=== PATIENT | male | born 1960 | race Caucasian/White ===

== ENCOUNTER 2017-06-16 04:58 | Emergency (ER) | payer MEDICAID, OTHER ==
[~2017-06-16] VITALS: Ht 172.7 cm; Wt 63.6 kg
[2017-06-16 05:13] LABS: GLUCOSE,POINT OF CARE 157 MG/DL (70-110)
[2017-06-16] MEDS ORDERED: VITA-328 PO (05:17)
[2017-06-16] MEDS ORDERED: GLIP10 PO (05:17)
[2017-06-16] MEDS ORDERED: MAGIC240 PO (05:17)
[2017-06-16] MEDS ORDERED: VIST50 PO (05:17)
[2017-06-16] MEDS ORDERED: LEVO50 PO (05:17)
[2017-06-16] MEDS ORDERED: RANI150T7 PO (05:17)
[2017-06-16] MEDS ORDERED: FAMO20 PO (05:17)
[2017-06-16] MEDS ORDERED: ONDA4 PO (05:17)
[2017-06-16] MEDS ORDERED: PANT40TA25 PO (05:17)
[2017-06-16] MEDS ORDERED: HYDR-4061 PO (05:17)
[2017-06-16] MEDS ORDERED: DIPH25CA48 PO (05:17)
[2017-06-16] MEDS ORDERED: SUCR1TAB PO (05:17)
[2017-06-16] MEDS ORDERED: LORA1TAB3 PO (05:17)
[2017-06-16] MEDS ORDERED: METF500T4 PO (05:17)
[2017-06-16] MEDS ORDERED: LIB10 PO (05:17)
[2017-06-16] MEDS ORDERED: TRAZ-144 PO (05:17)
[2017-06-16 05:58] LABS: BASOPHILS % (AUTO) 0.9 % (0.0-2.0); EOSINOPHILS % (AUTO) 2.2 % (1.0-6.0); HEMATOCRIT 44.9 % (41-53); HEMOGLOBIN 15.8 g/dL (13.5-17.5); LYMPHOCYTES # (AUTO) 1.6 K/uL (1.0-4.8); LYMPHOCYTES % (AUTO) 26.6 % (22.0-44.0); MEAN CORPUSCULAR HEMOGLOBIN 29.7 pg (26.0-34.0); MEAN CORPUSCULAR HGB CONC 35.1 G/dL (31.0-37.0); MEAN CORPUSCULAR VOLUME 85 fL (80-100); MONOCYTES # (AUTO) 0.4 K/uL (0.1-1.0); MONOCYTES % (AUTO) 7.5 % (2.0-9.0); NEUTROPHILS # (AUTO) 3.7 K/uL (1.8-7.7); NEUTROPHILS % (AUTO) 62.8 % (40.0-70.0); PLATELET COUNT (AUTO) 296 K/uL (150-450); RED CELL DISTRIBUTION WIDTH 12.9 % (11.5-14.5)
[2017-06-16 06:08] LABS: ANION GAP 5 mmol/L (8-16); CARBON DIOXIDE 32 mmol/L (22-29); CHLORIDE 99 mmol/L (98-107); CREATININE 0.76 mg/dL (0.60-1.30); GLOMERULAR FILTR. RATE CALC > 60 mL/min (>60); GLUCOSE,RANDOM 166 mg/dL (70-110); POTASSIUM 4.1 mmol/L (3.5-5.1); SODIUM SERUM 136 mmol/L (136-145); UREA NITROGEN, BLOOD 8 mg/dL (7-18)
[2017-06-16 06:13] LABS: ALANINE AMINOTRANSFERASE 27 U/L (12-78); ALBUMIN 4.2 g/dL (3.4-5.0); ALKALINE PHOSPHATASE 74 U/L (46-116); ASPARTATE AMINOTRANSFERASE 13 U/L (15-37); BILIRUBIN,TOTAL 1.4 mg/dL (0.1-1.0); LIPASE 107 U/L (73-393); TOTAL PROTEIN, SERUM 8.3 g/dL (6.4-8.2)
[2017-06-16] MEDS ORDERED: OxyCODONE HCL/ACETAMINOPHEN 5-325 MG TABLET PO ONE (06:30)
[2017-06-16 06:51] LABS: APPEARANCE,URINE CLEAR (CLEAR); BILIRUBIN,URINE NEGATIVE (NEGATIVE); GLUCOSE, URINE (UA) NEGATIVE (NEGATIVE); KETONES,URINE NEGATIVE (NEGATIVE); LEUKOCYTE ESTERASE ,URINE NEGATIVE (NEGATIVE); NITRATE,URINE NEGATIVE (NEGATIVE); OCCULT BLOOD,URINE NEGATIVE (NEGATIVE); PROTEIN,URINE NEGATIVE (NEGATIVE); UROBILINOGEN,URINE 0.2 mg/dL (<=1.0)
[2017-06-16 06:58] LABS: BACTERIA,URINE None Seen /HPF (None Seen); RBC,URINE None Seen /HPF (0-2); WBC,URINE 0-2 /HPF (0-5)
[2017-06-16 06:59] LABS: SQUAMOUS EPITHELIAL CELL,UR Rare /LPF (None Seen)
[2017-06-16 07:16] VITALS: BP 133/74
== END 2017-06-16 07:40 | disposition home or self-care (01) ==
LOC: EMS 04:59
DX: R10.84 Generalized abdominal pain (principal)
CPT/HCPCS: 82948; 82962; 93005; 99285

== ENCOUNTER 2017-06-29 09:51 | Day surgery (SDC) | payer MEDICAID ==
[~2017-06-29] VITALS: Ht 162.6 cm; Wt 57.6 kg
[~2017-06-29 09:51] MED LIST: DIPH25CA48 PO; FAMO20 PO; GLIP10 PO; HYDR-4061 PO; LEVO50 PO; LIB10 PO; LORA1TAB3 PO; MAGIC240 PO; METF500T4 PO; ONDA4 PO; PANT40TA25 PO; RANI150T7 PO; SODIUM CHLORIDE 0.9% 0 ML IV ONE; SUCR1TAB PO; TRAZ-144 PO; VIST50 PO; VITA-328 PO
[2017-06-29] MEDS ORDERED: CIPR500S5 PO (10:26)
[2017-06-29] MEDS ORDERED: OMEP20 PO (10:26)
[2017-06-29] MEDS ORDERED: SODIUM CHLORIDE 0.9% 1,000 ML IV ONE (10:30)
[2017-06-29] MEDS ORDERED: MEPERIDINE-PF 25 MG/ML SYRINGE ONE (11:32)
[2017-06-29] MEDS ORDERED: MEPERIDINE-PF 25 MG/ML SYRINGE IVP ONE (11:32)
[2017-06-29] MEDS ORDERED: PROPOFOL 1% 20 ML VIAL IVP ONE (12:00)
[2017-06-29] MEDS ORDERED: LIDOCAINE HCL/PF 2% 5 ML SYRINGE IVP ONE (12:00)
[2017-06-30 05:02] LABS: GLUCOMETER DEV NAME(LOC) SDS 5; GLUCOSE,POINT OF CARE 137 MG/DL (70-110)
[2017-06-30] MEDS ORDERED: CIPR-278 PO (18:29)
== END 2017-06-29 12:20 | disposition home or self-care (01) ==
LOC: SURGERY 09:51
PROVIDERS: ATTEND Internal Medicine Gastroenterology
DX: K29.50 Unspecified chronic gastritis without bleeding (principal); E11.9 Type 2 diabetes mellitus without complications; E03.9 Hypothyroidism, unspecified; Z79.2 Long term (current) use of antibiotics; Z79.899 Other long term (current) drug therapy; Z87.891 Personal history of nicotine dependence; Z72.89 Other problems related to lifestyle; Z79.84 Long term (current) use of oral hypoglycemic drugs
CPT/HCPCS: 43239; 82962; 88305; 88312; C1769; J2175; J2704; J3490; J7030

== ENCOUNTER 2017-06-30 15:12 | Emergency (ER) | payer MEDICAID ==
[~2017-06-30] VITALS: Ht 165.1 cm; Wt 54.5 kg
[~2017-06-30 15:12] MED LIST changes: +CIPR500S5 PO; +OMEP20 PO; -SODIUM CHLORIDE 0.9% 0 ML IV ONE
[2017-06-30 15:23] LABS: GLUCOSE,POINT OF CARE 259 MG/DL (70-110)
[2017-06-30 15:44] LABS: BASOPHILS % (AUTO) 0.6 % (0.0-2.0); EOSINOPHILS % (AUTO) 0.9 % (1.0-6.0); HEMATOCRIT 41.1 % (41-53); HEMOGLOBIN 14.4 g/dL (13.5-17.5); LYMPHOCYTES # (AUTO) 1.6 K/uL (1.0-4.8); LYMPHOCYTES % (AUTO) 31.3 % (22.0-44.0); MEAN CORPUSCULAR HEMOGLOBIN 29.5 pg (26.0-34.0); MEAN CORPUSCULAR HGB CONC 34.9 G/dL (31.0-37.0); MEAN CORPUSCULAR VOLUME 85 fL (80-100); MONOCYTES # (AUTO) 0.5 K/uL (0.1-1.0); MONOCYTES % (AUTO) 8.8 % (2.0-9.0); NEUTROPHILS % (AUTO) 58.4 % (40.0-70.0); PLATELET COUNT (AUTO) 278 K/uL (150-450); RED BLOOD CELL COUNT(AUTO) 4.86 MIL/uL (4.50-5.90); RED CELL DISTRIBUTION WIDTH 12.9 % (11.5-14.5)
[2017-06-30 16:01] LABS: ANION GAP 7 mmol/L (8-16); CALCIUM, TOTAL 8.9 mg/dL (8.8-10.5); CARBON DIOXIDE 31 mmol/L (22-29); CHLORIDE 97 mmol/L (98-107); CREATININE 0.81 mg/dL (0.60-1.30); GLOMERULAR FILTR. RATE CALC > 60 mL/min (>60); GLUCOSE,RANDOM 258 mg/dL (70-110); POTASSIUM 3.6 mmol/L (3.5-5.1); SODIUM SERUM 135 mmol/L (136-145); UREA NITROGEN, BLOOD 7 mg/dL (7-18)
[2017-06-30 16:05] LABS: ALANINE AMINOTRANSFERASE 39 U/L (12-78); ALBUMIN 3.9 g/dL (3.4-5.0); ALKALINE PHOSPHATASE 52 U/L (46-116); ASPARTATE AMINOTRANSFERASE 21 U/L (15-37); BILIRUBIN,TOTAL 0.7 mg/dL (0.1-1.0); LIPASE 121 U/L (73-393); TOTAL PROTEIN, SERUM 7.2 g/dL (6.4-8.2)
[2017-06-30 16:11] LABS: APPEARANCE,URINE CLEAR (CLEAR); BILIRUBIN,URINE NEGATIVE (NEGATIVE); GLUCOSE, URINE (UA) >=1000 mg/dL (NEGATIVE); KETONES,URINE NEGATIVE (NEGATIVE); LEUKOCYTE ESTERASE ,URINE NEGATIVE (NEGATIVE); NITRATE,URINE NEGATIVE (NEGATIVE); OCCULT BLOOD,URINE NEGATIVE (NEGATIVE); PROTEIN,URINE NEGATIVE (NEGATIVE); UROBILINOGEN,URINE 0.2 mg/dL (<=1.0)
[2017-06-30 16:28] LABS: BACTERIA,URINE None Seen /HPF (None Seen); RBC,URINE None Seen /HPF (0-2); SQUAMOUS EPITHELIAL CELL,UR Rare /LPF (None Seen); WBC,URINE None Seen /HPF (0-5)
[2017-06-30] MEDS ORDERED: CIPR-278 PO (18:29)
[2017-06-30] MEDS ORDERED: ONDANSETRON HCL 4 MG/2 ML VIAL IVP ONE (18:30)
[2017-06-30] MEDS ORDERED: SODIUM CHLORIDE 0.9% 1,000 ML IV ONE (18:30)
[2017-06-30] MEDS ORDERED: HYDROmorphone 2 MG/ML SYRINGE IVP ONE (18:30)
[2017-06-30 19:30] VITALS: BP 128/83
== END 2017-06-30 19:30 | disposition home or self-care (01) ==
LOC: EMS 15:12
DX: R10.30 Lower abdominal pain, unspecified (principal); I10 Essential (primary) hypertension; E11.9 Type 2 diabetes mellitus without complications
CPT/HCPCS: 36415; 80053; 81001; 82962; 83690; 85025; 96361; 96374; 96375; 99284; J1170; J2405; J7030

== ENCOUNTER 2017-07-13 10:12 | Day surgery (SDC) | payer MEDICAID ==
[~2017-07-13] VITALS: Ht 162.6 cm; Wt 57.6 kg
[~2017-07-13 10:12] MED LIST changes: +CIPR-278 PO; -CIPR500S5 PO; -PANT40TA25 PO; +SODIUM CHLORIDE 0.9% 1,000 ML IV ONE
[2017-07-13 10:47] LABS: GLUCOMETER DEV NAME(LOC) SDS 5; GLUCOSE,POINT OF CARE 127 MG/DL (70-110)
[2017-07-13] MEDS ORDERED: NALOXONE HCL 1 MG/ML 2 ML SYG IVP PRN (11:30)
[2017-07-13] MEDS ORDERED: FentaNYL CITRATE-PF 100 MCG/2 ML VIAL ONE (12:03)
[2017-07-13] MEDS ORDERED: MIDAZOLAM HCL 5 MG/ML VIAL ONE (12:03)
== END 2017-07-13 13:10 | disposition home or self-care (01) ==
LOC: SURGERY 10:12
PROVIDERS: ATTEND Internal Medicine Gastroenterology
DX: K64.8 Other hemorrhoids (principal); K21.9 Gastro-esophageal reflux disease without esophagitis; E03.9 Hypothyroidism, unspecified; E11.9 Type 2 diabetes mellitus without complications; F10.10 Alcohol abuse, uncomplicated; Z79.84 Long term (current) use of oral hypoglycemic drugs; Z79.2 Long term (current) use of antibiotics; Z79.891 Long term (current) use of opiate analgesic; Z87.891 Personal history of nicotine dependence; Z79.899 Other long term (current) drug therapy; Z98.890 Other specified postprocedural states
CPT/HCPCS: 45378; 82962; J2250; J3010; J7030